=== PATIENT | male | born 1950 | race Caucasian/White ===

== ENCOUNTER 2019-06-21 20:32 | Emergency (ER) | payer OTHER ==
[2019-06-21] MEDS ORDERED: DIPHTH,PERTUSS(ACELL),TET 0.5 ML DISP.SYRIN IM ONE ×2 (20:58→21:09)
[2019-06-21 20:59] VITALS: TEMP 98.1; BMI 33.9
[2019-06-21 22:54] LABS: BASO % 1.2 % (0-2.0); EOS % 1.5 % (0-4.5); HEMOGLOBIN 17.2 GM/dl (11.7-16.9); LYMPH % 12.4 % (8-40); MCH 30.2 pg (25.7-33.7); MCHC 33.7 g/dl (32.0-35.9); MEAN CELL VOLUME 89.7 fl (80-96); MEAN PLT VOLUME 8.7 fl (7.5-11.1); MONO % 4.7 % (3.8-10.2); NEUT % 80.2 % (42.8-82.8); PLATELET COUNT 295 K/MM3 (134-434); RBC 5.68 M/mm3 (4.00-5.60); RDW 13.4 % (11.9-15.9); WHITE BLOOD COUNT 15.1 K/mm3 (4.0-10.8)
[2019-06-21 22:57] LABS: INR 1.15 (0.82-1.09); PROTHROMBIN TIME (PATIENT) 12.8 SEC (10.2-13.0)
--- NOTE | 2019-06-21 23:01 | PDOC ---
Documentation entered by Amalia Falcon SCRIBE, acting as scribe for Lyric Crawford MD. Lyric Crawford MD: This documentation has been prepared by the katiee, Amalia Falcon SCRIBE, under my direction and personally reviewed by me in its entirety. I confirm that the documentation accurately reflects all work, treatment, procedures, and medical decision making performed by me. History of Present Illness - General Chief Complaint: Injury Stated Complaint: FELL History Source: Patient Exam Limitations: No Limitations - History of Present Illness Initial Comments: 06/21/19 21:00 Patient is a 68 year old male who presents to the ED today due to a fall that took place a couple of hours ago. Patient was walking across the street when he fell and hit the curb. Patient has cuts right above the lip, below the chin and on his left hand. Patient denies loss of consciousness. ROS General: No fevers or chills, no weakness, no weight loss HEENT: No change in vision. No sore throat,. No ear pain CardioVascular: No chest pain or shortness of breath Respiratory:No cough, or wheezing. Gastrointestinal: no nausea, vomiting, diarrhea or constipation, No rectal bleeding Genitourinary: No dysuria, hematuria, or frequency Musculoskeletal: No joint or muscle pain or swelling Neurologic: No headache, vertigo, dizziness or loss of consciousness Psychiatric: nor depression Skin: +Easy bruising. No rashes Endocrine: no increased thirst or abnormal weight change Allergic: no skin or latex allergy All other systems reviewed and normal Exam: General: Well-nourished well-developed individual, no acute distress HEENT: Throat: Normal, tonsils normal, no erythema or exudate Neck: +Abrasion to the submental area. Supple, no meningeal signs, no lymphadenopathy Eyes::Pupils equal reactive and round, extraocular motion intact Chest: Nontender to palpation Cardiac: S1-S2 normal, regular rate and rhythm, no murmurs rubs or gallops Respiratory: Lungs clear to auscultation bilateral Abdomen: Soft, nondistended, normal bowel sounds, nontender to palpation diffusely Extremities:+Knees bilateral abrasion-No bony tenderness +Multiple abrasions to the hands bilateral with some maceration of the skin and associated ecchymosis, No bony tenderness.Warm, dry, no cyanosis, clubbing, or edema Skin:+Superficial laceration approximately 2cm above the upper lip in the midline. No rashes Neuro: +Right side of forehead contusion. Alert and oriented x3, nonfocal exam, grossly intact, normal gait Psych: Normal mood and affect 06/21/19 22:55 Assessment and plan: This is a 68-year-old male who tripped and fell while walking the city. Patient said there the pavement was uneven patient fell forward onto his hands and face hitting his forehead and face patient has multiple abrasions and a couple of small lacerations all of which were able to be closed with Dermabond Patient had a head CT that was positive for a very small subarachnoid bleed in the right frontal lobe Patient will be admitted for observation and follow-up of that bleed Procedure note multiple abrasions and 2 small lacerations were closed with Dermabond patient tolerated well. 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 Patient will need to be transferred to a tertiary care center as we have no but here that can provide the care he needs. Patient and his family requested that he be sent to [facility] and not to [facility]. Past History - Past Medical History Allergies/Adverse Reactions: Allergies Allergy/AdvReac Type Severity Reaction Status Date / Time ciprofloxacin AdvReac Intermediate Verified 06/21/19 20:35 ED Treatment Course - LABORATORY CBC & Chemistry Diagram: 06/21/19 22:35 06/21/19 23:00 Discharge - Discharge Information Problems reviewed: Yes Clinical Impression/Diagnosis: Subarachnoid bleed Condition: Guarded Disposition: TRANSFER ACUTE CARE/OTHER HOSP - Follow up/Referral Referrals: Arturo Lyman [Primary Care Provider] - - Patient Discharge Instructions - Post Discharge Activity
[2019-06-21 23:24] LABS: ALBUMIN 3.7 g/dl (3.4-5.0); BILIRUBIN,TOTAL 0.8 mg/dl (0.2-1); CALCIUM 8.1 mg/dl (8.5-10); CREATININE 1.1 mg/dl (0.55-1.3); POTASSIUM 3.8 mmol/L (3.5-5.1); TOT PROT 6.8 g/dl (6.4-8.2)
[2019-06-21 23:35] VITALS: BP 141/72; PULSE 70
--- NOTE | 2019-06-22 10:59 | EKG ---
Test Reason : Blood Pressure : / mmHG Vent. Rate : 064 BPM Atrial Rate : 064 BPM P-R Int : 184 ms QRS Dur : 112 ms QT Int : 422 ms P-R-T Axes : 041 -33 003 degrees QTc Int : 435 ms NORMAL SINUS RHYTHM LEFT AXIS DEVIATION ABNORMAL ECG NO PREVIOUS ECGS AVAILABLE Confirmed by TREY LANE MD ([id number]) on 06/22/2019 10:59:39 AM Referred By: NILS SANDOVAL Confirmed By:TREY LANE MD
== END 2019-06-22 00:11 | disposition short-term general hospital (02) ==
LOC: FER 20:32
PROC: 3E0234Z Introduction of Serum, Toxoid and Vaccine into Muscle, Percutaneous Approach (ICD-10-PCS; principal; 2019-06-21)
PROC: 0CQ0XZZ Repair Upper Lip, External Approach (ICD-10-PCS; 2019-06-21)
DX: I60.9 Nontraumatic subarachnoid hemorrhage, unspecified (principal); S01.511A Laceration without foreign body of lip, initial encounter; W18.39XA Other fall on same level, initial encounter; Y93.01 Activity, walking, marching and hiking; Y92.480 Sidewalk as the place of occurrence of the external cause; Z88.8 Allergy status to other drugs, medicaments and biological substances
CPT/HCPCS: 36415; 70450-TC; 71045-TC-FY; 80053; 85025; 85610; 90715; 93005; 99285-25